=== PATIENT | female | born 1990 | race Caucasian/White ===

== ENCOUNTER 2021-04-23 19:36 | Outpatient (REF) | payer BC, SELFPAY ==
[2021-04-23 16:48] LABS: Bilirubin Negative (Negative); Blood Moderate (Negative); Clarity Clear (Clear); Glucose Negative (Negative); Ketones Negative (Negative); Leukocyte Esterase Moderate (Negative); Nitrite Negative (Negative); Specific Gravity 1.015 (1.005-1.025); Urobilinogen 0.2 EU/dL (Up TO 0.2)
[2021-04-23 16:59] LABS: Bacteria Moderate HPF (Negative); C & S Indicated? C&S Done As Ordered; Casts Negative LPF (Negative); Crystals Negative HPF (Negative); Epithelial Cells Few HPF (Negative); Mucus Negative (Negative); WBC 20-50 HPF (0-5)
== END 2021-04-23 19:37 | disposition home or self-care (01) ==
LOC: LBN 19:36
PROVIDERS: PCP Advanced Practice Midwife; Visit Provider Advanced Practice Midwife
DX: O23.41 Unspecified infection of urinary tract in pregnancy, first trimester (principal); R30.0 Dysuria
CPT/HCPCS: 81003; 81015; 87086

== ENCOUNTER 2021-04-26 04:21 | Outpatient (CLI) | payer BC, SELFPAY ==
[2021-04-26 11:21] LABS: Abs Immature Grans 0.04 10^3/uL (0.0-0.06); Absolute Basophil Count 0.03 10^3/uL (0.0-0.2); Absolute Eosinophil Count 0.14 10^3/uL (0.0-0.7); Absolute Lymphocyte Count 1.63 10^3/uL (1.2-3.4); Absolute Monocyte Count 1.01 10^3/uL (0.1-0.8); Absolute Neutrophil Count 7.53 10^3/uL (1.2-6.7); Basophils % 0.3; Eosinophils % 1.3; HGB 13.1 g/dL (11.2-15.7); Immature Grans % 0.4; Lymphocytes % 15.7; MCH 29.8 pg (27.0-33.0); MCHC 33.6 % (32.0-36.0); MCV 88.6 fL (80-95); MPV 11.4 fL (8.0-11.0); Monocytes % 9.7; Neutrophils % 72.6; Nucleated RBC 0 %; Platelet Count 206 10^3/uL (130-400); RDW 11.8 % (11.7-14.6); RDW-SD 38.2 fL; WBC 10.38 10^3/uL (4.4-10.8)
[2021-04-26 12:10] LABS: TSH (W/Ref FT4) 0.66 uIU/mL (0.36-3.74)
[2021-04-27 11:21] LABS: Hepatitis B Surface Ag Negative (Negative)
[2021-04-27 11:57] LABS: Varicella IgG Antibody Positive (See Note)
[2021-04-27 11:58] LABS: HIV-1/2 Ag & Ab Screen Negative (Negative)
[2021-04-27 12:03] LABS: Rubella IgG Ab (UVM) Positive (See Note)
[2021-04-27 12:17] LABS: Hepatitis C Ab w Rflx HCV PCR Negative (Negative)
[2021-04-28 09:24] LABS: Syphilis Total Ab w/Reflex Nonreactive (Nonreactive)
== END 2021-04-26 04:22 | disposition home or self-care (01) ==
LOC: LBO 04:21
PROVIDERS: PCP Advanced Practice Midwife; Visit Provider Advanced Practice Midwife
DX: Z34.91 Encounter for supervision of normal pregnancy, unspecified, first trimester (principal); Z11.4 Encounter for screening for human immunodeficiency virus [HIV]; Z11.59 Encounter for screening for other viral diseases; Z01.84 Encounter for antibody response examination
CPT/HCPCS: 36415; 86787; 86803; 86850; 86900; 86901; 87340; 87389; 84443; 85025; 86762; 86780

== ENCOUNTER 2021-04-26 11:15 | Outpatient (REF) | payer BC, SELFPAY ==
--- NOTE | 2021-04-26 10:00 | PAPFT_PTH ---
PATIENT: Korina Alvarez LOC: [facility] U#:[id number] AGE/SX: 31/F ROOM: RE04/26/[address]: Oralia Madrigal CNM : 1990 BED: DIS: 04/26/2021 SPEC #: [id number] RECD: 04/26/21 12:52 STATUS: SYDNIE REKendra #: [id number] JAKOB: 04/26/21 10:[address]: Oralia Madrigal DEPT: [facility] Cytology RECD BY: Renetta Martinez Tissues: 1 - CX/ENDOCX FOR PAP SMEARS Procedures: PAP THIN PREP/UVM Screening HPV DNA PROBE Comments: [id number]
[2021-04-26 12:15] LABS: *AMPHETAMINES SCREEN URINE Negative (Negative); *BARBITURATES SCREEN URINE Negative (Negative); *BENZODIAZEPINES SCREEN URINE Negative (Negative); Cannabinoids THC Negative (Negative); Cocaine Screen,Urine Negative (Negative); METHADONE URINE SCREEN Negative (Negative); OPIATES URINE SCREEN Negative (Negative)
[2021-04-26 12:16] LABS: Tricyclic Antidepressants Negative (Negative)
[2021-04-27 16:18] LABS: Chlamydia Result Negative (Negative); GC Result Negative (Negative)
[2021-05-01 11:32] LABS: Buprenorphine Negative ng/mL (Cutoff: 5.0); Norbuprenorphine Negative ng/mL (Cutoff: 2.5)
== END 2021-04-26 11:16 | disposition home or self-care (01) ==
LOC: LBN 11:15
PROVIDERS: PCP Advanced Practice Midwife; Visit Provider Advanced Practice Midwife
DX: Z12.4 Encounter for screening for malignant neoplasm of cervix (principal); Z11.51 Encounter for screening for human papillomavirus (HPV); Z34.91 Encounter for supervision of normal pregnancy, unspecified, first trimester; Z13.1 Encounter for screening for diabetes mellitus
CPT/HCPCS: 80307; 87491; 87591; 88142; 87086; 87480; 87510; 87624; 87660

== ENCOUNTER 2021-05-23 18:22 | Outpatient (REF) | payer BC, SELFPAY | END 2021-05-23 18:23 | disposition home or self-care (01) | LOC: LBN 18:22 | PROVIDERS: PCP Advanced Practice Midwife; Visit Provider Advanced Practice Midwife | DX: B37.49 Other urogenital candidiasis (principal) | CPT/HCPCS: 87480; 87510; 87660 ==

== ENCOUNTER 2021-08-01 14:30 | Outpatient (CLI) | payer BC, SELFPAY ==
--- OUTSIDE RECORDS SUMMARY | 2021-08-01 14:35 | XMS_ITS ---
:1990 Author Care Team Providers Name Role Phone DR. JOSH WHITFIELD Primary Care Provider [phone] JOSH WHITFIELD Referring Provider [phone] Allergies Code Code System Name Reaction Severity Status Onset NKDA ? Medications Name Status Start Date Stop Date ? ? mupirocin 2 % topical ointment Completed ? 1 Notes: chaga mushroom tea Problems Name Status Onset Date Source ? Breast Lump Active 02/13/2021 ? Procedures None recorded. Results Lab Results None recorded. Past Encounters 02/13/2021 Breast Lump Ying Drew MD: [address] [place] [phone], Ph. 08/09/2020 Abnormal Findings on Diagnostic Imaging of Breast; Breast Lump Ying Drew MD: [address] [place] [address], [address] [phone], Ph. Social History Tobacco Smoking Status Never Smoker Vaccine List None recorded. Plan of Care Reminders Provider Appointments None ? ? recorded. Lab None ? ? recorded. Referral None ? ? recorded. Procedures None ? ? recorded. Surgeries None ? ? recorded. Imaging None ? ? recorded. Vitals 02/13/2021 08:30AM FOLLOW UP Height Weight BMI 5 ft 6 in 130 lbs 21 kg/m2 08/09/2020 09:30AM NEW PT Height Weight BMI 5 ft 6 in 130 lbs 21 kg/m2
--- OUTSIDE RECORDS SUMMARY | 2021-08-01 14:36 | XMS_ITS | CCD ---
:1990 Author Care Team Providers Name Role Phone ABRIN Attending Physician Unavailable Vital Signs Unknown or Not Available. Allergies Allergy Code Allergy Type Reaction Status No Known Allergies 0 No known allergies Act claire Procedures Unknown or Not Available. History of Immunizations Unknown or Not Available. Problems Unknown or Not Available. Results URINALYSIS WITH MICROSCOPIC - Collect Da te/Time: 04/19/2021 15:42 Test Name Code Test Result Test Units Test Ref Range COLLECTION MODE: CLEAN CATCH N/A Color 5778-6 YELLOW N/A yellow Appearance 5767-9 CLEAR N/A clear Glucose urine 94647-9 NEGATIVE N/A negative mg/ dl Bilirubin 5770-3 NEGATIVE N/A negative Ketones 2514-8 NEGATIVE N/A negative mg/d l Spec gravity 5811-5 1.015 N/A 1.003 - 1.030 pH urine 2756-5 8.0 N/A 5.0 - 7.0 Protein 25098-1 NEGATIVE N/A negative mg/d l Urobilinogen 28717-0 0.2 N/A <or= 1 EU/d l Nitrite 5802-4 NEGATIVE N/A negative Blood 5794-3 TRACE-LY N/A negative Leukocytes 85128-2 SMALL N/A negative WBCs 11475-7 0-5 N/A 0-5 / hpf RBCs 60842-0 0-5 N/A 0-5 / hpf Epith cells 96064-2 0-5 N/A 0-5 / hpf Cell types squamous N/A Crystals none N/A none Bacteria none N/A none Mucus none N/A none Casts none N/A none /lp f Active Medications Unknown or Not Available. Medications Administered During Visit Unknown or Not Available. Encounters Encounter Diagnosis Diagnosis Code Start Date Urgent desire to urinate [id number] 04/19/2021 Social History Smoking Status Code Start Date End Date Never smoker [id number] Patient Decision Aids Unknown or Not Available. Discharge Instructions You were admitted to [facility] 01 on 04/19/2021 15:34 with a principal diagnosis of Urgency of urination You had the following tests done: URINALYSIS WITH MICROSCOPIC You were discharged from [facility] 01 on 04/19/2021 15:34 Should you have any questions prior to d ischarge, please contact a member of your healthcare team. If you have left the ho spital and have any questions, please contact your primary care physician. Chief Complaint and Reason For Visit Unknown or Not Available. Function Status Unknown or Not Available. Plan of Care Unknown or Not Available. Referral/Transition of Care Unknown or Not Available.
--- NOTE | 2021-08-01 15:06 | NUR.NOTE ---
Nursing Note: Patient is here today because she has felt a decrease in movement yesterday and today. Media Services Coordinator is at the bedside doing an ultrasound.
[2021-08-01 15:09] VITALS: BP 117/75; PULSE 81; TEMP 36.8
--- NOTE | 2021-08-01 15:43 | W.OBNST ---
Date of service: 08/01/21 Time of Service: 15:43 NST Evaluation Reason for NST Reasons for Nonstress Test: DECREASED MOVEMENT Gestational Age Gestational Age in Weeks and Days: 25 Weeks and 3Days Test and Monitor Explained Test/Monitor Explained: Test Explained, Monitor Explained and Patient Verbalized Understanding Vital Signs Blood Pressure: 117/75 Pulse: 81 Temperature: 98.2 F Urine Results Urine Protein: Negative Urine Ketones: Negative Urine Glucose: Negative Urine Blood: Negative NST Information Date on Monitor: 08/01/21 Time on Monitor: 15:08 Date off Monitor: 08/01/21 Time off Monitor: 15:37 Total Time on Monitor: 29 NST Interventions: None NST Evaluation Patient States Movement: Present FHR Baseline: 125 Variability: Moderate 6-25 bpm Accelerations: 15x15 Decelerations: None NST Results: Reactive Note NST Note Note: FHT visualized with abd ultrasound initially, then EFM applied. Pt able to feel movement during NST test, left unit greatly reassured. Baby in transverse position with head on pt's right side during NST. NST Reviewed and Verified by: Daiana Madrigal
[2021-08-01 15:45] VITALS: BP 117/75; PULSE 81; TEMP 36.8
== END 2021-08-01 15:45 | disposition home or self-care (01) ==
LOC: BCD 14:39 → OBS 15:42
PROVIDERS: PCP Advanced Practice Midwife; Visit Provider Advanced Practice Midwife
DX: O36.8120 Decreased fetal movements, second trimester, not applicable or unspecified (principal); Z3A.25 25 weeks gestation of pregnancy
CPT/HCPCS: 59025

== ENCOUNTER 2023-08-25 13:06 | Outpatient (REF) | payer OTHER, SELFPAY ==
--- NOTE | 2023-08-25 10:00 | PAPFT_PTH ---
PATIENT: Korina Alvarez LOC: [facility] U#:[id number] AGE/SX: 33/F ROOM: RE08/25/[address]: Mechelle Singh : 1990 BED: DIS: 08/25/2023 SPEC #: [id number] RECD: 08/26/23 13:10 STATUS: SYDNIE REKendra #: [id number] JAKOB: 08/25/23 10:[address]: Mechelle Singh DEPT: [facility] Cytology RECD BY: Renetta Martinez ENTERED: 08/26/23 13:10 SP TYPE: PAPFT FERNANDA DR: Oralia Madrigal CNM Tissues: 1 - CX/ENDOCX FOR PAP SMEARS Procedures: PAP THIN PREP/UVM Screening HPV DNA PROBE Comments: [id number] (COLLECTED VAG & CERVICAL/ENDOCERVICAL PER OFFICE)
== END 2023-08-25 13:07 | disposition home or self-care (01) ==
LOC: LBN 13:06
PROVIDERS: PCP Advanced Practice Midwife; Visit Provider Naturopath
DX: Z12.4 Encounter for screening for malignant neoplasm of cervix (principal); Z11.51 Encounter for screening for human papillomavirus (HPV)
CPT/HCPCS: 88142; 87624